=== PATIENT | male | born 1960 ===

== ENCOUNTER 2016-04-29 10:42 | Emergency (ER) | payer BC, OTHER ==
[2016-04-29] MEDS ORDERED: Acetaminophen TAB* 325 MG PO ONE (11:21)
--- NOTE | 2016-04-29 11:26 | UC ---
Lukas Pino Alok, scribed for Neyda Holm MD on 04/29/16 at 1122 . Hip/Pelvis Pain - HPI Summary HPI Summary: 55 y/o male presents to for right-sided groin pain. Pt while at work when lifting 60-80 lbs garg from the floor for dumping in twisting, fluid motion assisted by a co-worker at approximately 0930 this morning. Pt states his left LE was on an elevated plateform and he was moving toward right leg which was lower. Pt reports feeling popping right groin pain No direct trauma. Pt states he has never had a groin injury before and that his current pain registers at 4 out of 10 in severity. Pt denies back pain. No pain radiating does leg, knee or ankle. No pain in penis or testicle. No edema, eccheports feeling popping groin pain ecchymosis, or abrasion. He is able to ambulate but not at full stride - states feels it pull by groin when leg extends back. Pt took no OTC medications for pain [employer] but states took Motrin this morning. PMHx include asthma. Pt denies any pertinent PSHx and uses EtOH occasionally. - History Of Current Complaint Chief Complaint: UCLowerExtremity Stated Complaint: GROIN INJURY Time Seen by Provider: 04/29/16 11:04 Hx Obtained From: Patient Onset/Duration: Gradual Onset, Lasting Hours, Still Present Timing: Constant Severity Initially: Moderate Severity Currently: Moderate Pain Intensity: 4 Pain Scale Used: 0-10 Numeric Location: Discrete At: - Right side groin Aggravating Factor(s): Nothing Alleviating Factor(s): Nothing Associated Signs And Symptoms: Positive: Negative - Allergies/Home Medications Allergies/Adverse Reactions: Allergies Allergy/AdvReac Type Severity Reaction Status Date / Time No Known Allergies Allergy Verified 04/29/16 10:48 Home Medications: Home Medications Albuterol HFA INHALER* [Ventolin HFA Inhaler*] 2 puff INH Q4H PRN 04/29/16 [ History Confirmed 04/29/16] Fluticasone-Salmeterol 250-50* [Advair Diskus 250-50*] 1 puff INH BID 04/29/16 [ History Confirmed 04/29/16] Montelukast Sodium TAB* [Singulair TAB*] 10 mg PO DAILY 04/29/16 [History Confirmed 04/29/16] PMH/Surg Hx/FS Hx/Imm Hx Previously Healthy: Yes Respiratory History Of: Reports: Asthma - Surgical History Surgical History: Yes Surgery Procedure, Year, and Place: back surgery - Family History Known Family History: Negative: Cardiac Disease, Diabetes - Social History Occupation: Employed Full-time Alcohol Use: Weekly Substance Use Type: None Smoking Status (MU): Never Smoked Tobacco - Immunization History Most Recent Influenza Vaccination: fall 2015 Review of Systems Constitutional: Negative Skin: Negative Eyes: Negative ENT: Negative Respiratory: Negative Cardiovascular: Negative Gastrointestinal: Negative Genitourinary: Negative Motor: Negative Neurovascular: Negative Musculoskeletal: Other: - Right sided groin pain Neurological: Negative Psychological: Negative All Other Systems Reviewed And Are Negative: Yes Physical Exam Triage Information Reviewed: Yes Appearance: Well-Appearing, No Pain Distress, Well-Nourished Vital Signs: Initial Vital Signs Temp 98.5 F 04/29/16 10:50 Pulse 86 04/29/16 10:50 Resp 16 04/29/16 10:50 BP 152/92 04/29/16 10:50 Pulse Ox 98 04/29/16 10:50 Vital Signs Reviewed: Yes Respiratory: Positive: Normal breath sounds, No respiratory distress Cardiovascular: Positive: Other: - 2+ DP, PT CBT < 2 sec Musculoskeletal Exam: Normal - + SLE RLE without pain Full fle/ext knee, ankle + great toe extension + abduction/adduction Pt with point tenderness right anterior pubic rami at quad insertion No hernia noted Neurological: Positive: Other: - + sensation throughout LE Psychological Exam: Normal Skin Exam: Normal Diagnostics - Radiology Pelvis XRAY Xray Interpretation: Positive (See Comments) - IMPRESSION: 1. No evidence for fracture or articular malalignment. 2. Bilateral femoral head avascular necrosis. Correlate for risk factors for osteonecrosis. Radiology Interpretation Completed By: Radiologist Hip Injury Course/Dx - Course Course Of Treatment: PT presents with pain insertion hip flexors s/p pivot and shifting injury at work this morning. PT without deficits but point tenderness along insertion. Suspect strain. Will check imaging for ?chip fracture. Anticipate d/c with motrin/apap. ice. rest. PCP f/u. Pt states agreement and comfort with plan - Differential Dx/Diagnosis Provider Diagnoses: groin strain Discharge - Discharge Plan Condition: Stable Disposition: HOME Prescriptions: Ibuprofen TAB* [Motrin TAB* 600 MG] 600 mg PO Q6H PRN #20 tab PRN Reason: Pain Patient Education Materials: Groin Strain (ED) Forms: *Work Release Referrals: Harinder Meyers MD [Primary Care Provider] - [facility] [place] [place] [facility] [Outside] Additional Instructions: - Anticipate increased pain over the next 1-2 days. This is normal after this type of injury. you may have discomfort for 1 week. - Okay to alternate ibuprofen (Advil, Motrin) and tylenol every 3 hours for pain. Take with food. Do NOT Take for more than 4-5 days - Okay to apply ice (wrapped in a towel) for 20 minutes, 2-3 times a day for the next 2 days. After this, change to heat - Avoid vigorous exercise or stretching. SLow, purposeful stretching is okay - Contact your doctor to schedule a follow-up appointment. If your doctor does not evaluate people with workers comp injuries, you may contact the referral number provided The documentation as recorded by the Lukas lepe Alok accurately reflects the service I personally performed and the decisions made by , Neyda Holm MD.
--- NOTE | 2016-04-29 12:06 | RAD ---
Indication: RIGHT groin pain. [place] pop lifting. Comparison: None. Technique: Supine AP pelvis. Report: No pelvic fracture or joint diastases evident. Geographic regions of peripheral sclerosis noted in the subchondral portions of the femoral heads consistent with avascular necrosis. No gross collapse of the subchondral bone evident. Negative for significant hip joint space narrowing. Unremarkable pubic symphysis and sacroiliac joints. Enthesophytes at the iliac crests. Unremarkable soft tissue contours. IMPRESSION: 1. No evidence for fracture or articular malalignment. 2. Bilateral femoral head avascular necrosis. Correlate for risk factors for osteonecrosis.
== END 2016-04-29 12:08 | disposition home or self-care (01) ==
LOC: UCEAST 10:42
DX: S39.011A Strain of muscle, fascia and tendon of abdomen, initial encounter (principal); X50.0XXA Overexertion from strenuous movement or load, initial encounter; Y93.89 Activity, other specified; Y92.9 Unspecified place or not applicable; Y99.0 Civilian activity done for income or pay; M87.9 Osteonecrosis, unspecified; J45.909 Unspecified asthma, uncomplicated
CPT/HCPCS: 72170; 99202; A9270-GY; G0463